=== PATIENT | male | born 1955 | race Caucasian/White ===

== ENCOUNTER 2016-10-23 21:41 | Emergency (ER) | payer OTHER ==
[2016-10-23 22:32] LABS: BASOPHIL 0.6 % (0-2); HCT 41.4 % (42.0-52.0); HGB 14.1 g/dl (13.2-18.0); LYMPHOCYTE 23.8 % (15-48); MCH 29.5 pg (25.0-31.0); MCHC 34.1 g/dL (32.0-36.0); MCV 86.6 fL (78.0-100.0); MONOCYTE 6.6 % (0-12); MPV 8.9 fL (6.0-9.5); PLT 343 K/uL (150-400); RBC 4.78 M/uL (4.70-6.00); RDW 13.5 % (11.5-14.0); WBC 12.1 K/uL (4.0-10.5)
[2016-10-23 22:43] LABS: INR 1.01 (0.9-1.2); PROTHROMBIN TIME 12.9 SECONDS (11.7-14.0); PTT 29.6 SECONDS (23.2-31.4)
[2016-10-23 22:58] LABS: ACETAMINOPHEN (TYLENOL) < 5.0 ug/mL (10.0-30.0); SALICYLATE < 6 ug/mL (0-300)
[2016-10-23 22:59] LABS: TROPONIN T < 0.010 ng/mL
[2016-10-23 23:00] LABS: ALCOHOL (ETOH) MEDICAL 388 mg/dL; CKMB < 1.00 ng/mL (0.97-4.94); MYOGLOBIN < 21 ng/mL (26-65); PRO-BNP 970 pg/mL (0-125)
[2016-10-23 23:01] LABS: ALBUMIN 4.1 g/dL (3.5-5.0); BILIRUBIN - TOTAL 0.3 mg/dL (0.1-1.0); CREATININE 0.9 mg/dL (0.7-1.2); GLOBULIN (CALCULATION) 3.2 g/dL (2.2-4.2); MAGNESIUM 1.86 mg/dL (1.40-2.10); POTASSIUM 4.4 mmol/L (3.5-5.1); TOTAL PROTEIN 7.3 g/dL (6.4-8.3)
[2016-10-24 02:25] LABS: AMPHETAMINES NEGATIVE (NEGATIVE); BARBITURATES NEGATIVE (NEGATIVE); BENZODIAZEPINES NEGATIVE (NEGATIVE); COCAINE NEGATIVE (NEGATIVE); MARIJUANA (THC) NEGATIVE (NEGATIVE); METHADONE NEGATIVE (NEGATIVE); TRICYCLIC ANTIDEPRESSANT NEGATIVE (NEGATIVE)
== END 2016-10-24 08:43 | disposition home or self-care (01) ==
LOC: EDBD 21:41 → FER 21:41
PROVIDERS: Emergency Medicine Emergency Medical Services
DX: F10.129 Alcohol abuse with intoxication, unspecified (principal); I10 Essential (primary) hypertension; J44.9 Chronic obstructive pulmonary disease, unspecified; I48.91 Unspecified atrial fibrillation; F17.210 Nicotine dependence, cigarettes, uncomplicated; Z79.01 Long term (current) use of anticoagulants; Z79.899 Other long term (current) drug therapy; Y90.8 Blood alcohol level of 240 mg/100 ml or more
CPT/HCPCS: 36415; 70450; 71010; 80053; 80305; 82550; 82553; 83735; 83874; 83880; 84484; 85025; 85610; 85730; 93005; G0480; J3411; J3475

== ENCOUNTER 2016-10-26 12:43 | Emergency (ER) | payer OTHER ==
[2016-10-26 13:23] LABS: BASOPHIL 0.7 % (0-2); EOSINOPHIL 0.4 % (0-5); HCT 45.1 % (42.0-52.0); HGB 15.5 g/dl (13.2-18.0); LYMPHOCYTE 18.7 % (15-48); MCH 29.6 pg (25.0-31.0); MCHC 34.4 g/dL (32.0-36.0); MCV 86.2 fL (78.0-100.0); MONOCYTE 5.7 % (0-12); MPV 9.3 fL (6.0-9.5); NEUTROPHIL 74.5 % (41-80); PLT 334 K/uL (150-400); RBC 5.23 M/uL (4.70-6.00); RDW 13.9 % (11.5-14.0); WBC 10.2 K/uL (4.0-10.5)
[2016-10-26 13:38] LABS: ALBUMIN 3.9 g/dL (3.5-5.0); BILIRUBIN - TOTAL 0.5 mg/dL (0.1-1.0); CREATININE 0.8 mg/dL (0.7-1.2); GLOBULIN (CALCULATION) 3.2 g/dL (2.2-4.2); POTASSIUM 4.5 mmol/L (3.5-5.1); TOTAL PROTEIN 7.1 g/dL (6.4-8.3)
[2016-10-26 14:11] LABS: INR 0.96 (0.9-1.2); PROTHROMBIN TIME 12.4 SECONDS (11.7-14.0); PTT 24.3 SECONDS (23.2-31.4)
[2016-10-26 14:16] LABS: MAGNESIUM 1.58 mg/dL (1.40-2.10); PHOSPHORUS 3.8 mg/dL (2.7-4.5)
[2016-10-26 16:35] LABS: TROPONIN T < 0.010 ng/mL
[2016-10-26 16:39] LABS: CKMB 8.54 ng/mL (0.97-4.94)
[2016-10-26 18:03] LABS: BILIRUBIN NEGATIVE (NEGATIVE); BLOOD 1+ Ery/uL (NEGATIVE); CLARITY CLEAR (CLEAR); COLOR YELLOW (YELLOW); GLUCOSE (U) NORMAL (NORMAL); KETONE (U) 1+ (SMALL) mg/dL (NEGATIVE); LEUKOCYTES NEGATIVE Leu/uL (NEGATIVE); NITRITE NEGATIVE (NEGATIVE); PROTEIN 1+ mg/dL (NEGATIVE); UROBILINOGEN 0.2 mg/dL (0.2-1.0)
[2016-10-26 18:09] LABS: BACTERIA TRACE; MUCOUS LARGE
[2016-10-26 18:16] LABS: AMPHETAMINES NEGATIVE (NEGATIVE); BARBITURATES NEGATIVE (NEGATIVE); BENZODIAZEPINES NEGATIVE (NEGATIVE); COCAINE NEGATIVE (NEGATIVE); MARIJUANA (THC) NEGATIVE (NEGATIVE); METHADONE NEGATIVE (NEGATIVE); TRICYCLIC ANTIDEPRESSANT NEGATIVE (NEGATIVE)
== END 2016-10-27 10:14 | disposition other institution (70) ==
LOC: FER 12:43
PROVIDERS: Nurse Practitioner Family
DX: R45.851 Suicidal ideations (principal); F10.20 Alcohol dependence, uncomplicated; T51.0X2A Toxic effect of ethanol, intentional self-harm, initial encounter; F41.9 Anxiety disorder, unspecified; I10 Essential (primary) hypertension; I48.91 Unspecified atrial fibrillation; F32.9 Major depressive disorder, single episode, unspecified; F17.210 Nicotine dependence, cigarettes, uncomplicated; Z79.01 Long term (current) use of anticoagulants; Z79.899 Other long term (current) drug therapy; Y90.8 Blood alcohol level of 240 mg/100 ml or more
CPT/HCPCS: 36415; 80053; 80305; 81001; 82150; 82550; 82553; 83690; 83735; 84100; 84484; 85025; 85610; 85730; 93005; G0480; J2060; J2405; J3411; J3475